=== PATIENT | male | born 1955 | race Caucasian/White ===

== ENCOUNTER 2020-12-26 09:49 | Outpatient (RCR) | payer MEDICARE, MEDICAID, SELFPAY | END 2020-12-26 23:59 | LOC: IMMUN 09:49 | PROVIDERS: PCP Family Medicine; Referring Provider Family Medicine; Visit Provider Family Medicine | DX: Z23 Encounter for immunization (principal) | CPT/HCPCS: 0011A ==

== ENCOUNTER → 2022-05-28 | Outpatient (CLI) | payer MEDICARE, MEDICAID, SELFPAY ==
--- NOTE | 2022-05-28 08:34 | ECHOD_ITS ---
Reason For Study: Murmur Procedure This was a 2D Doppler, Color Flow transthoracic echocardiogram. The exam was of adequate technical quality. Exam performed in department. Left Ventricle Mildly dilated left ventricle. Left ventricular systolic function is normal. The estimated ejection fraction is 60 %. There is evidence of diastolic dysfunction. No regional wall motion abnormalities noted. Right Ventricle Normal RV size. Normal systolic function. Atria Normal left atrium. Normal right atrium. No doppler evidence for ASD. Mitral Valve There is no mitral annular calcification. Mild focal mitral valve calcification of the anterior leaflet. Mild-Moderate (1-2+) mitral valve insufficiency. Tricuspid Valve Normal tricuspid valve. Trivial tricuspid valve insufficiency. Right ventricular systolic pressure estimated to be 26 mmHg. Aortic Valve Bicuspid aortic valve. Mild diffuse aortic valve thickening. Mild focal aortic valve calcification. Mild-Moderate (1-2+) eccentric aortic valve insufficiency. Pulmonic Valve The pulmonic valve is not well visualized. Mild (1+) pulmonic valve insufficiency. Great Vessels Mildly dilated aortic root. Pericardium/Pleural No pericardial effusion. MMode/2D Measurements & Calculations LVIDd: 5.9 cm IVSd: 1.4 cm LVOT diam: 2.5 cm LVIDs: 3.4 cm LVPWd: 1.4 cm LVOT area: 5.1 cm2 RVDd: 3.4 cm FS: 42.1 % Ao root diam: 4.2 cm LAV(MOD-bp): 64.5 ml LVAd ap4: 38.6 cm2 LAV(MOD-bp) Indexed: 35.6 ml/m2 LVLd ap4: 8.6 cm LAV(MOD-sp2): 74.9 ml EDV(MOD-sp4): 140.1 ml LAV(MOD-sp4): 50.0 ml EDV(sp4-el): 146.5 ml LVAs ap4: 21.7 cm2 LVLs ap4: 7.0 cm ESV(MOD-sp4): 55.3 ml ESV(sp4-el): 57.2 ml EF(MOD-sp4): 60.5 % EF(sp4-el): 61.0 % SV(MOD-sp4): 84.8 ml SV(sp4-el): 89.4 ml LA A4 area: 16.6 cm2 LA dimension(2D): 3.8 cm RA A4 area: 8.5 cm2 Doppler Measurements & Calculations MV E max boy: 44.5 cm/sec Lat Peak E' Boy: 4.6 cm/sec Med Peak E' Boy: 2.8 cm/sec MV A max boy: 72.1 cm/sec E/E' lat: 9.6 E/E' med: 15.7 MV E/A: 0.62 Ao V2 max: 174.5 cm/sec LV V1 max: 144.0 cm/sec SV(LVOT): 159.9 ml Ao max P.2 mmHg LV V1 max P.3 mmHg Ao V2 mean: 107.7 cm/sec LV V1 mean P.8 mmHg Ao mean P.4 mmHg LV V1 mean: 90.4 cm/sec Ao V2 VTI: 32.8 cm LV V1 VTI: 31.5 cm CHIOMA(I,D): 4.9 cm2 CHIOMA(V,D): 4.2 cm2 PA V2 max: 119.8 cm/sec PI end-d boy: 124.6 cm/sec TR max boy: 237.5 cm/sec TR max P.6 mmHg ECHO/Echo Complete Interpretation Summary Mildly dilated left ventricle. Left ventricular systolic function is normal. The estimated ejection fraction is 60 %. Mild focal mitral valve calcification of the anterior leaflet. Mild-Moderate (1-2+) mitral valve insufficiency. Trivial tricuspid valve insufficiency. Bicuspid aortic valve. Mild diffuse aortic valve thickening. Mild focal aortic valve calcification. Mild-Moderate (1-2+) eccentric aortic valve insufficiency. Mild (1+) pulmonic valve insufficiency. Mildly dilated aortic root. Right ventricular systolic pressure estimated to be 26 mmHg. There is evidence of diastolic dysfunction. Comment: Echocardiographic and color-flow Doppler images of the mid interventri cular septum demonstrate an echolucent area with color flow, which did not appear to dipesh e the entire width of the interventricular septum compatible with an interventricular septal defect, potentially compatible with visualization of flow within the coronary vasculature and poten tially a coronary vascular/LV fistula. Ordering Physician: Alvin Angel Referring Physician: Jonathan Espino Performed By: Stefanie Llamas, ZEESHANCS, RVT
== END | disposition home or self-care (01) ==
LOC: CVS 08:34
PROVIDERS: PCP Family Medicine; Referring Provider Internal Medicine Cardiovascular Disease; Visit Provider Internal Medicine Cardiovascular Disease
DX: Q23.1 Congenital insufficiency of aortic valve (principal)
CPT/HCPCS: 93306

== ENCOUNTER 2023-07-16 08:34 | Outpatient (CLI) | payer MEDICARE, MEDICAID, SELFPAY ==
--- NOTE | 2023-07-16 09:04 | MRI_ITS ---
STUDY: EXAMINATION - MRV BRAIN WITHOUT CONTRAST REASON FOR EXAM: Male, 68 years old. BILAT OPTIC EDEMA,MASS VS. SINUS THROMBOSIS TECHNIQUE: 3D myxc-[id number] (TOF) imaging was performed in a 1.5 stefan MRI scanner. COMPARISON: None. FINDINGS: Normal flow within the superior sagittal sinus. Normal flow within the superficial cortical veins. Normal flow within the paired internal cerebral veins, vein of Suraj and straight sinus. Normal flow within the bilateral transverse and sigmoid sinuses. Normal flow within the bilateral jugular bulbs. MRI/MRV Head Without Contrast IMPRESSION: Normal unenhanced MRV of the brain. Electronically Signed: Tate Ruby MD at 21:02 EDT ,
--- NOTE | 2023-07-16 09:04 | MRI_ITS ---
STUDY: MRI BRAIN WITH AND WITHOUT CONTRAST REASON FOR EXAM: Male, 68 years old. BILATERAL OPTIC NERVE EDEMA, MASS VS SINUS THROMBOSIS TECHNIQUE: Standardized multiplanar fat and water weighted pulse sequences were obtained. IV 12ml clariscan was administered for the contrast portion of the examination. COMPARISON: None. FINDINGS: There is moderate cerebral atrophy with widening of the extra-axial spaces and ventricular dilatation. There are a limited number of small white matter hyperintensities, distributed throughout the deep white matter tracts of the cerebral hemispheres, consistent with mild chronic white matter ischemic changes. There is no evidence for recent intracranial ischemia or other cause of cytotoxic edema on diffusion weighted imaging (DWI). Normal T2* images of the brain without demonstrated susceptibility artifact. There is no demonstrated hemosiderin stain. Normal bilateral basal ganglia. Normal thalami. There is no extra-axial fluid accumulation. Normal flow voids within the major intracranial circulation suggesting patency by spin echo criteria. Normal venous enhancement. There is no enhancing intra-axial or extra-axial abnormality. Normal sella turcica, pituitary gland, infundibular stalk, optic chiasm and hypothalamus. Normal tectal plate and pineal gland. Normal midbrain, aurelia and medulla. Focal encephalomalacia and gliosis in the left hemisphere of the cerebellum consistent with a chronic infarct. Normal basal cisterns. Normal bilateral temporal bones. Normal bilateral internal auditory canals. Subtle flattening of the posterior sclera and mild dilatation of the optic nerve sheath possibly consistent with papilledema possibly from idiopathic intracranial hypertension (pseudotumor cerebri).. Normal visualized paranasal sinuses. Normal calvarium and skull base. Normal visualized soft tissue structures. Normal visualized upper cervical spine. MRI/Brain W/WO Contrast IMPRESSION: 1. Involutional changes of the brain, as described above. 2. Possible idiopathic intracranial hypertension (pseudotumor cerebri) and correlation with funduscopic exam would be useful. Electronically Signed: Tate Ruby MD at 20:52 EDT ,
[2023-07-16 09:10] LABS: Hematocrit 38.6 % (40-54); Hemoglobin 12.2 g/dL (13.0-16.5); Mean Corp Hgb Conc 31.6 g/dL (32-36); Mean Corpuscular Hgb 28.6 pg (27.0-32.0); Mean Corpuscular Volume 90.6 fL (80-94); Mean Platelet Vol. 11.1 fl (6.2-12.0); Platelet Count 137 K/mm3 (150-450); RBC Distribution Width CV 14.4 % (11.6-14.6); RBC Distribution Width SD 47.9 fl (35.1-43.9); Red Blood Count 4.26 M/mm3 (4.6-6.2); White Blood Count 3.8 K/mm3 (4.4-11.0)
[2023-07-16 10:12] LABS: CRP < 2.90 mg/L (0.0-3.0); Creatinine, Serum 1.08 mg/dL (0.70-1.30); EST Glomerular Filtration Rate 72 mL/min (>60); Est Glom Filt Rate - Afr Amer 87 mL/min (>60)
[2023-07-16 11:03] LABS: Erythrocyte Sedimentation Rate < 1 mm/hr (0-20)
== END 2023-07-16 23:59 | disposition home or self-care (01) ==
LOC: MRI 08:36
PROVIDERS: PCP Family Medicine; Referring Provider Ophthalmology; Visit Provider Ophthalmology
DX: H47.10 Unspecified papilledema (principal)
CPT/HCPCS: 36415; 70544; 70553; 82565; 85027; 85652; 86140; A9575

== ENCOUNTER → 2024-03-12 | Outpatient (CLI) | payer MEDICARE, MEDICAID, SELFPAY ==
--- NOTE | 2024-03-12 08:46 | ECHOD_ITS ---
Reason For Study: BICUSPID AORTIC VALVE Procedure This was a 2D Doppler, Color Flow transthoracic echocardiogram. Myocardial strain analysis was performed in this exam to aid in the assessment of cardiac function. The study was technically difficult. Exam performed in department. Left Ventricle Normal LV size. The estimated ejection fraction is 55 %. Stage 1 diastolic dysfunction. No regional wall motion abnormalities noted. Right Ventricle Normal RV size. Normal systolic function. Atria The left atrium is moderately enlarged. Normal right atrium. No doppler evidence for ASD. Mitral Valve There is no mitral valve stenosis. Mild (1+) mitral valve insufficiency. Tricuspid Valve There is no tricuspid stenosis. Trivial tricuspid valve insufficiency. Pulmonary artery systolic pressure is 25 mmHg. Aortic Valve Bicuspid aortic valve. Aortic sclerosis, no stenosis. There is no aortic stenosis. Mild (1+) aortic valve insufficiency. Pulmonic Valve There is no pulmonic valvular stenosis. Trivial pulmonic valve insufficiency. Great Vessels Normal aortic root. Pericardium/Pleural No pericardial effusion. MMode/2D Measurements & Calculations LVIDd: 5.8 cm IVSd: 1.2 cm LVOT diam: 2.5 cm LVIDs: 3.5 cm LVPWd: 0.94 cm LVOT area: 4.7 cm2 RVDd: 4.2 cm FS: 39.9 % Ao root diam: 4.0 cm LAV(MOD-bp): 98.2 ml LVAd ap4: 38.9 cm2 LAV(MOD-bp) Indexed: 53.1 ml/m2 LVLd ap4: 9.2 cm LAV(MOD-sp2): 95.1 ml EDV(MOD-sp4): 134.6 ml LAV(MOD-sp4): 86.6 ml EDV(sp4-el): 138.7 ml LVAs ap4: 24.4 cm2 LVLs ap4: 7.5 cm ESV(MOD-sp4): 67.3 ml ESV(sp4-el): 67.9 ml EF(MOD-sp4): 50.0 % EF(sp4-el): 51.0 % LVAd ap2: 39.0 cm2 SV(MOD-sp4): 67.2 ml SV(MOD-sp2): 68.0 ml LVLd ap2: 9.1 cm EDV(MOD-sp2): 138.7 ml EDV(sp2-el): 140.9 ml LVAs ap2: 26.4 cm2 LVLs ap2: 8.2 cm ESV(MOD-sp2): 70.7 ml ESV(sp2-el): 72.2 ml EF(MOD-sp2): 49.0 % SV(sp4-el): 70.8 ml LA dimension(2D): 4.6 cm LA A4 area: 23.4 cm2 RA A4 area: 10.6 cm2 TAPSE: 1.9 cm Time Measurements MV dec time: 0.15 sec Doppler Measurements & Calculations MV E max boy: 44.8 cm/sec Lat Peak E' Boy: 5.9 cm/sec Med Peak E' Boy: 3.2 cm/sec MV A max boy: 80.0 cm/sec E/E' lat: 7.6 E/E' med: 13.9 MV E/A: 0.56 Ao V2 max: 175.7 cm/sec LV V1 max: 125.4 cm/sec MV dec slope: 292.4 cm/sec2 Ao max P.3 mmHg LV V1 max P.3 mmHg Ao V2 mean: 111.1 cm/sec LV V1 mean P.7 mmHg Ao mean P.9 mmHg LV V1 mean: 91.1 cm/sec Ao V2 VTI: 41.4 cm LV V1 VTI: 28.4 cm AV (velocity ratio): 0.69 CHIOMA(I,D): 3.2 cm2 CHIOMA(V,D): 3.4 cm2 SV(LVOT): 134.5 ml PA V2 max: 95.3 cm/sec PI end-d boy: 77.4 cm/sec PA max PG (full): 2.4 mmHg TR max boy: 211.0 cm/sec TR max P.8 mmHg ECHO/Echo Complete Interpretation Summary The estimated ejection fraction is 55 %. Stage 1 diastolic dysfunction. The left atrium is moderately enlarged. Mild (1+) mitral valve insufficiency. Bicuspid aortic valve. Mild (1+) aortic valve insufficiency. Ordering Physician: Caridad Baldwin Referring Physician: Caridad Baldwin Performed By: Anna Arboleda RDCS
== END | disposition home or self-care (01) ==
PROVIDERS: PCP Family Medicine; Referring Provider Physician Assistant Medical; Visit Provider Physician Assistant Medical
DX: Q23.1 Congenital insufficiency of aortic valve (principal)
CPT/HCPCS: 93306

== ENCOUNTER → 2025-03-19 | Outpatient (CLI) | payer MEDICARE, MEDICAID, SELFPAY ==
--- NOTE | 2025-03-19 08:46 | ECHOD_ITS ---
Reason For Study Reason For Study: Bicuspid AV Procedure This was a 2D Doppler, Color Flow transthoracic echocardiogram. The study was technically difficult. Exam performed in department. Left Ventricle Normal LV size. Left ventricular systolic function is lower limits of normal. The left ventricular ejection fraction is 50 %. Stage 1 diastolic dysfunction. There is borderline global hypokinesis of the left ventricle. Right Ventricle Normal RV size. Normal systolic function. Atria Normal left atrium. Normal right atrium. Mitral Valve Mild diffuse mitral valve thickening. Mild (1+) eccentric mitral valve insufficiency. Tricuspid Valve Normal tricuspid valve. Mild tricuspid valve insufficiency. Pulmonary artery systolic pressure is 30 mmHg. Aortic Valve Bicuspid aortic valve. Mild focal aortic valve thickening. Mild (1+) eccentric aortic valve insufficiency. Pulmonic Valve Normal pulmonic valve. Great Vessels Mild to moderately dilated aortic root. The pulmonary artery is normal size. Inferior vena cava collapse with respiration. Pericardium/Pleural No pericardial effusion. MMode/2D Measurements & Calculations RVDd: 3.4 cm LVOT diam: 2.5 cm Ao root diam: 4.1 cm LVOT area: 5.0 cm2 LAV(MOD-bp): 51.9 ml SV(MOD-sp4): 83.5 ml LVAd ap4: 44.0 cm2 LAV(MOD-bp) Indexed: 29.8 ml/m2 LVLd ap4: 9.1 cm SI(MOD-sp4): 48.0 ml/m2 LAV(MOD-sp2): 80.2 ml EDV(MOD-sp4): 171.3 ml LAV(MOD-sp4): 30.7 ml EDV(sp4-el): 180.1 ml LVAs ap4: 29.3 cm2 LVLs ap4: 8.1 cm ESV(MOD-sp4): 87.7 ml ESV(sp4-el): 89.2 ml EF(MOD-sp4): 48.8 % EF(sp4-el): 50.4 % SV(sp4-el): 90.8 ml Ao sinus diam: 4.[address] Junction: 3.3 cm LA A4 area: 13.4 cm2 LA dimension(2D): 4.6 cm RA A4 area: 10.7 cm2 Time Measurements MV dec time: 0.19 sec Doppler Measurements & Calculations MV E max boy: 57.6 cm/sec Lat Peak E' Boy: 4.9 cm/sec Med Peak E' Boy: 3.9 cm/sec MV A max boy: 85.2 cm/sec E/E' lat: 11.6 E/E' med: 14.9 MV E/A: 0.68 MV V2 max: 100.1 cm/sec MV P1/2t max boy: 62.1 cm/sec Ao V2 max: 155.3 cm/sec MV max P.0 mmHg MV P1/2t: 73.4 msec Ao max P.7 mmHg MV V2 mean: 44.2 cm/sec Ao V2 mean: 104.5 cm/sec MV mean P.99 mmHg MV dec slope: 247.8 cm/sec2 Ao mean P.1 mmHg MV V2 VTI: 26.8 cm MVA(P1/2t): 3.0 cm2 Ao V2 VTI: 37.9 cm AV (velocity ratio): 0.74 MVA(VTI): 5.3 cm2 CHIOMA(I,D): 3.7 cm2 CHIOMA(V,D): 3.9 cm2 AI max boy: 256.2 cm/sec LV V1 max: 121.5 cm/sec MR max boy: 582.5 cm/sec AI max P.3 mmHg LV V1 max P.9 mmHg MR max P.7 mmHg LV V1 mean P.2 mmHg MR mean boy: 438.9 cm/sec AI dec slope: 128.3 cm/sec2 LV V1 mean: 84.9 cm/sec MR mean P.6 mmHg AI P1/2t: 585.1 msec LV V1 VTI: 28.1 cm MR VTI: 220.5 cm SV(LVOT): 141.6 ml TR max boy: 256.7 cm/sec TR max P.4 mmHg ECHO/Echo Complete Interpretation Summary Normal LV size. Left ventricular systolic function is lower limits of normal. The left ventricular ejection fraction is 50 %. Stage 1 diastolic dysfunction. Mild diffuse mitral valve thickening. Pulmonary artery systolic pressure is 30 mmHg. Mild (1+) eccentric aortic valve insufficiency. Ordering Physician: Caridad Baldwin Referring Physician: Caridad Baldwin Performed By: Janusz Bonilla RCS
== END | disposition home or self-care (01) ==
LOC: CVS 08:45
PROVIDERS: PCP Family Medicine; Referring Provider Physician Assistant Medical; Visit Provider Physician Assistant Medical
DX: Q23.81 Bicuspid aortic valve (principal)
CPT/HCPCS: 93306